=== PATIENT | male | born 1995 | race Caucasian/White ===

== ENCOUNTER 2019-12-12 23:26 | Observation (INO) ==
[2019-12-12] MEDS ORDERED: Ondansetron ODT 4 MG TAB.RAPDIS SL ONE (23:30)
[2019-12-12] MEDS ORDERED: Isovue-370 500 ML BOTTLE IVP ONE (23:47)
[2019-12-13] MEDS ORDERED: Metoclopramide 10 MG/2 ML VIAL IVP ONE (00:16)
[2019-12-13] MEDS ORDERED: 0.9 % Sodium Chloride 1,000 ML IV ONE (00:17)
[2019-12-13 00:22] LABS: Basophils # 0.1 K/mcL (0.0-0.2); Basophils % 0.4 %; Eosinophils # 0.2 K/mcL (0.0-0.6); Hematocrit 44.2 % (37.5-50.1); Hemoglobin 14.4 g/dL (12.9-16.9); Lymphocytes # 2.3 K/mcL (0.6-4.6); Lymphocytes % 13.9 %; Mean Corpuscular HGB Conc 32.6 g/dL (31.6-35.5); Mean Corpuscular Hemoglobin 29.3 pg (28.0-33.3); Mean Corpuscular Volume 89.8 fL (83.0-100.0); Mean Platelet Volume 10.6 fL (9.4-12.4); Monocytes # 1.2 K/mcL (0.0-1.3); Monocytes % 7.2 %; Neutrophils # 12.5 K/mcL (1.6-8.9); Platelet Count 354 K/mcL (140-400); Red Blood Count 4.92 M/mcL (4.19-5.50); Segmented Neutrophils % 76.5 %; White Blood Count 16.3 K/mcL (4.3-11.1)
[2019-12-13 00:44] LABS: Alanine Aminotransferase 46 Units/L (7-52); Albumin 4.1 g/dL (3.5-5.7); Albumin/Globulin Ratio 1.9 (1.1-2.2); Alkaline Phosphatase 79 Units/L (34-104); Aspartate Amino Transferase 44 Units/L (13-39); BUN/Creatinine Ratio 16 (6-26); Bilirubin,Direct 0.1 mg/dL (0.0-0.2); Bilirubin,Indirect 0.2 mg/dL (0.0-1.0); Bilirubin,Total 0.3 mg/dL (0.3-1.0); Blood Urea Nitrogen 19 mg/dL (6-20); Calcium 9.4 mg/dL (8.6-10.3); Carbon Dioxide 18 mEq/L (23-29); Chloride 105 mEq/L (98-107); Globulin 2.2 g/dL (2.4-3.5); Glucose 183 mg/dL (70-105); Osmolality,Calculated 291 (280-300); Potassium 3.6 mEq/L (3.5-5.1); Sodium 137 mEq/L (136-145); Total Protein 6.3 g/dL (6.4-8.9); eGFR For African Americans > 60 (> 60); eGFR For Non-African Americans > 60 (> 60)
[2019-12-13] MEDS ORDERED: Naloxone 0.4 MG/ML INJ IVP ONE (02:04)
[2019-12-13] MEDS ORDERED: Azithromycin 500 MG in 0.9 % Sodium Chloride 250 ML IVPB ONE (03:17)
[2019-12-13] MEDS ORDERED: cefTRIAXone 1,000 MG in Water for inj. (sterile) 10 ML IVP ONE (03:17)
[2019-12-13] MEDS ORDERED: Clindamycin 600 MG/50 ML 600 MG/50 ML IV.SOLN IVPB ONE (03:17)
[2019-12-13] MEDS ORDERED: methylPREDNISolone 125 MG/2 ML VIAL IVP ONE (03:36)
[2019-12-13] MEDS ORDERED: Ondansetron 4 MG/2 ML VIAL IVP ONE (04:06)
[2019-12-13 04:53] LABS: ABG Base Excess -3 mEq/L (-2 to 3); ABG HCO3 23 mEq/L (21-27); ABG Oxygen Saturation 100 % (95-98); ABG PCO2 46 mmHg (35-45); ABG PH 7.32 pH Units (7.32-7.45); ABG PO2 189 mmHg (85-104); ABG TCO2 25 mEq/L (20-26)
[2019-12-13 04:55] LABS: Amphetamine Screen,Urine Negative ng/mL (Cutoff=1000); Barbiturate Screen,Urine Negative ng/mL (Cutoff=200); Benzodiazepines Screen,Urine Negative ng/mL (Cutoff=200); Cannabinoid Screen,Urine Positive ng/mL (Cutoff = 50); Cocaine Screen,Urine Positive ng/mL (Cutoff= 300); Opiate Screen,Urine Negative ng/mL (Cutoff=300); Phencyclidine Screen,Urine Negative ng/mL (Cutoff=25)
[2019-12-13 05:42] VITALS: BP 127/44
[2019-12-13] MEDS ORDERED: *HR* LORazepam 2 MG/ML VIAL IVP PRN ×3 (06:01)
[2019-12-13] MEDS ORDERED: D5% in Water 1,000 ML IVC PRN (06:02)
[2019-12-13] MEDS ORDERED: *HR* Dextrose 50 % in Water (Syg) 50 ML SYRINGE IVP PRN (06:02)
[2019-12-13] MEDS ORDERED: Dextrose Gel 15 GM/37.5 ML TUBE PO PRN ×2 (06:02)
[2019-12-13] MEDS ORDERED: *HR* Promethazine 25 MG/ML VIAL IVP PRN (06:04)
[2019-12-13] MEDS ORDERED: Naloxone 0.4 MG/ML INJ IVP PRN (06:04)
[2019-12-13] MEDS ORDERED: Azithromycin 250 MG TABLET PO SCH (06:15)
[2019-12-13] MEDS ORDERED: 0.9 % Sodium Chloride 1,000 ML IVC SCH (06:15)
[2019-12-13 07:20] LABS: Basophils % 0.2 %; Mean Corpuscular HGB Conc 32.7 g/dL (31.6-35.5); Mean Corpuscular Hemoglobin 29.5 pg (28.0-33.3); Mean Corpuscular Volume 90.2 fL (83.0-100.0); Mean Platelet Volume 10.6 fL (9.4-12.4); Red Cell Distribution Width 14.1 % (11.5-14.5)
[2019-12-13 07:22] LABS: Basophils # 0.1 K/mcL (0.0-0.2); Hematocrit 42.5 % (37.5-50.1); Hemoglobin 13.9 g/dL (12.9-16.9); Immature Granulocytes % 0.6 % (0-4); Immature Platelets 7.1 % (1.1-6.1); Lymphocytes # 0.5 K/mcL (0.6-4.6); Monocytes # 0.5 K/mcL (0.0-1.3); Monocytes % 2.1 %; Platelet Count 299 K/mcL (140-400); Red Blood Count 4.71 M/mcL (4.19-5.50); Segmented Neutrophils % 95.1 %; White Blood Count 23.6 K/mcL (4.3-11.1)
[2019-12-13 07:23] LABS: Neutrophils # 22.4 K/mcL (1.6-8.9); Platelet Estimate Normal (Normal)
[2019-12-13 07:28] LABS: INR 1.1
[2019-12-13 07:47] LABS: BUN/Creatinine Ratio 20 (6-26); Blood Urea Nitrogen 18 mg/dL (6-20); Calcium 8.7 mg/dL (8.6-10.3); Carbon Dioxide 23 mEq/L (23-29); Chloride 107 mEq/L (98-107); Glucose 132 mg/dL (70-105); Magnesium 1.6 mg/dL (1.6-2.6); Osmolality,Calculated 286 (280-300); Phosphorous 2.6 mg/dL (2.7-4.5); Potassium 4.6 mEq/L (3.5-5.1); Sodium 136 mEq/L (136-145); Troponin I 0.23 ng/mL (< 0.04); eGFR For African Americans > 60 (> 60); eGFR For Non-African Americans > 60 (> 60)
[2019-12-13 08:09] LABS: Hepatitis B Surface Antigen Nonreactive (Nonreactive)
[2019-12-13 08:38] LABS: Hepatitis B Core IgM Nonreactive (Nonreactive)
[2019-12-13 08:39] LABS: HIV-1&2 Antibody & p24 Ag Nonreactive (Nonreactive); Hepatitis A Antibody IgM Nonreactive (Nonreactive); Hepatitis C Virus Antibody Nonreactive (Nonreactive)
[2019-12-13] MEDS ORDERED: Folic Acid 1 MG TABLET PO SCH (09:00)
[2019-12-13 10:21] LABS: Estimated Average Glucose 103 mg/dl
[2019-12-13] MEDS ORDERED: levoFLOXacin 500 MG/100 ML 500 MG/100 ML BAG IVPB SCH (11:00)
[2019-12-13] MEDS ORDERED: Insulin LISPRO 300 UNITS/3 ML VIAL SQ SCH (12:00)
[2019-12-13] MEDS ORDERED: MethylPREDNISolone 40 MG/ML VIAL IVP SCH (12:00)
[2019-12-13 13:06] LABS: Amphetamine Screen,Urine Negative ng/mL (Cutoff=1000); Barbiturate Screen,Urine Negative ng/mL (Cutoff=200); Benzodiazepines Screen,Urine Negative ng/mL (Cutoff=200); Cannabinoid Screen,Urine Positive ng/mL (Cutoff = 50); Cocaine Screen,Urine Positive ng/mL (Cutoff= 300); Opiate Screen,Urine Negative ng/mL (Cutoff=300); Phencyclidine Screen,Urine Negative ng/mL (Cutoff=25)
[2019-12-13] MEDS ORDERED: Famotidine 20 MG/2 ML VIAL IVP ONE (13:38)
[2019-12-13] MEDS ORDERED: Aminoglycoside Consult 1 EACH MC ONE (15:12)
[2019-12-13] MEDS ORDERED: Thiamine (B-1) 100 MG, Folic Acid 1 MG, MVI, adult with vitamin K 10 ML in 0.9 % Sodi... IVPB SCH (18:00)
[2019-12-16 09:03] LABS: ANA IgG by ELISA NONE DETECTED (None Detected)
[2019-12-17 07:44] LABS: Serine Protease-3 Antibody 1 AU/mL (0-19)
== END 2019-12-13 15:13 | disposition left against medical advice (07) ==
LOC: EMEROOARM 23:26 → 2NENU 23:26
PROVIDERS: ADMIT Internal Medicine; ATTEND Internal Medicine